=== PATIENT | female | born 1975 | race Caucasian/White ===

== ENCOUNTER 2016-12-07 13:53 | Emergency (ER) | payer BC ==
[2016-12-07] MEDS ORDERED: ONDANSETRON 4 MG VIAL ONE (18:11)
[2016-12-07] MEDS ORDERED: SODIUM CHLORIDE 0.9% 1,000 ML ONE (18:11)
[2016-12-07] MEDS ORDERED: DILAUDID 1 MG/ML AMP ONE ×2 (18:11→20:48)
[2016-12-07] MEDS ORDERED: DICYCLOMINE 10 MG CAP ONE (18:32)
[2016-12-07] MEDS ORDERED: ALU/MAG/SIM 30 ML UDC ONE (19:44)
[2016-12-07] MEDS ORDERED: LIDOCAINE 2% VISC 15 ML UDC ONE (19:45)
[2016-12-07] MEDS ORDERED: PROMETHAZINE 25 MG TAB ONE (21:10)
== END 2016-12-07 21:34 | disposition home or self-care (01) ==
LOC: ER 13:53
DX: R11.2 Nausea with vomiting, unspecified (principal); R19.7 Diarrhea, unspecified; R10.84 Generalized abdominal pain
CPT/HCPCS: 36415; 74020; 74176; 80053; 80307; 81003; 82009; 82803; 82947; 83605; 83690; 84703; 85025; 87040; 96361; 96374; 96375; 96376

== ENCOUNTER 2016-12-20 22:37 | Inpatient (IN) | payer BC ==
[~2016-12-20] VITALS: Ht 160 cm; Wt 110.6 kg
[2016-12-20] MEDS ORDERED: ASPIRIN 81 MG CHEW TAB ONE (23:04)
[2016-12-20] MEDS ORDERED: SODIUM CHLORIDE 0.9% 2,000 ML ONE (23:33)
[2016-12-20] MEDS ORDERED: ONDANSETRON 4 MG VIAL ONE (23:33)
[2016-12-20] MEDS ORDERED: DILAUDID 1 MG/ML AMP ONE (23:41)
[2016-12-21] MEDS ORDERED: ONDANSETRON 4 MG VIAL ONE (03:04)
[2016-12-21] MEDS ORDERED: MORPHINE 2 MG/ML SYR IV PRN (04:15)
[2016-12-21] MEDS ORDERED: GLUCAGON 1 MG VIAL IM PRN (04:15)
[2016-12-21] MEDS ORDERED: SALINE FLUSH 10 ML FLUSH PRN (04:15)
[2016-12-21] MEDS ORDERED: PHARMACY TO DOSE LEVAQUIN IV SCH (04:15)
[2016-12-21] MEDS ORDERED: DEXTROSE 50% SYRINGE 50 ML IV PRN (04:15)
[2016-12-21] MEDS ORDERED: DILAUDID 1 MG/ML AMP ONE (04:17)
[2016-12-21 05:19] VITALS: Ht 160 cm; Wt 110.6 kg
[2016-12-21] MEDS: SODIUM CHLORIDE 0.9% FLUSH BAG 500 ML IV SCH (06:00)
[2016-12-21] MEDS: LEVOFLOXACIN 750 MG/150 ML 150 ML IV SCH (06:08)
[2016-12-21 06:33] VITALS: BP_SYST 152; RESP 18; TEMP 97.6
[2016-12-21] MEDS ORDERED: DILAUDID 1 MG/ML AMP IV ONE (07:35)
[2016-12-21 07:52] VITALS: BP_SYST 148; RESP 16; TEMP 97.3
[2016-12-21] MEDS: SALINE FLUSH 10 ML FLUSH SCH ×2 (07:56→20:00)
[2016-12-21] MEDS: METRONIDAZOLE 500MG/100ML 100 ML IV SCH ×3 (08:00→18:52)
[2016-12-21] MEDS: PROMETHAZINE 25 MG/ML VIAL IV PRN ×2 (09:08→17:22)
[2016-12-21] MEDS: DILAUDID 1 MG/ML AMP IV PRN ×4 (09:35→18:58)
[2016-12-21] MEDS: FLUOXETINE 20 MG CAP PO SCH ×2 (10:38→20:25)
[2016-12-21] MEDS: clonazePAM 0.5 MG TAB PO SCH ×2 (10:38→20:25)
[2016-12-21] MEDS: ONDANSETRON 4 MG VIAL IV PRN ×3 (10:39→18:52)
[2016-12-21 11:40] VITALS: BP_SYST 112; RESP 18; TEMP 97.4
[2016-12-21 15:38] VITALS: BP_SYST 118; RESP 18; TEMP 97.2
[2016-12-21] MEDS: SODIUM CHLORIDE 0.9% 1,000 ML IV SCH (17:21)
[2016-12-21] MEDS ORDERED: MISSING DOSE XX ONE (18:10)
[2016-12-21] MEDS: CYCLOBENZAPRINE 10 MG TAB PO PRN (18:52)
[2016-12-21 19:25] VITALS: BP_SYST 124; RESP 20; TEMP 97.4
[2016-12-22] MEDS: DILAUDID 1 MG/ML AMP IV PRN ×6 (00:05→22:50)
[2016-12-22] MEDS: ONDANSETRON 4 MG VIAL IV PRN ×6 (00:05→22:51)
[2016-12-22] MEDS: METRONIDAZOLE 500MG/100ML 100 ML IV SCH ×5 (00:05→23:41)
[2016-12-22 01:19] VITALS: BP_SYST 128; RESP 20; TEMP 97.9
[2016-12-22] MEDS: PROMETHAZINE 25 MG/ML VIAL IV PRN ×3 (02:23→19:38)
[2016-12-22] MEDS: SODIUM CHLORIDE 0.9% 1,000 ML IV SCH ×2 (04:03→18:14)
[2016-12-22] MEDS: CYCLOBENZAPRINE 10 MG TAB PO PRN ×3 (04:03→18:06)
[2016-12-22] MEDS: SODIUM CHLORIDE 0.9% FLUSH BAG 500 ML IV SCH (06:00)
[2016-12-22 08:07] VITALS: BP_SYST 138; RESP 18; TEMP 96
[2016-12-22] MEDS: LEVOFLOXACIN 750 MG/150 ML 150 ML IV SCH (08:24)
[2016-12-22] MEDS: SALINE FLUSH 10 ML FLUSH SCH ×2 (08:24→19:38)
[2016-12-22] MEDS: clonazePAM 0.5 MG TAB PO SCH ×2 (08:27→22:49)
[2016-12-22] MEDS: FLUOXETINE 20 MG CAP PO SCH ×2 (08:27→22:49)
[2016-12-22 12:14] VITALS: BP_SYST 118; RESP 18; TEMP 97.2
[2016-12-22 16:35] VITALS: BP_SYST 149; RESP 18; TEMP 98.1
[2016-12-22 20:24] VITALS: BP_SYST 158; TEMP 98.1
[2016-12-22 22:49] VITALS: BP_SYST 147; RESP 16; TEMP 97.9
[2016-12-23] MEDS: CYCLOBENZAPRINE 10 MG TAB PO PRN ×3 (00:41→17:18)
[2016-12-23] MEDS: SODIUM CHLORIDE 0.9% 1,000 ML IV SCH ×2 (02:33→14:51)
[2016-12-23] MEDS: SODIUM CHLORIDE 0.9% FLUSH BAG 500 ML IV SCH (02:33)
[2016-12-23] MEDS: ONDANSETRON 4 MG VIAL IV PRN ×5 (03:19→20:18)
[2016-12-23] MEDS: DILAUDID 1 MG/ML AMP IV PRN ×5 (03:19→20:20)
[2016-12-23 03:27] VITALS: BP_SYST 123; RESP 18; TEMP 97.8
[2016-12-23] MEDS: METRONIDAZOLE 500MG/100ML 100 ML IV SCH ×4 (05:29→23:15)
[2016-12-23] MEDS: PROMETHAZINE 25 MG/ML VIAL IV PRN ×3 (05:30→23:16)
[2016-12-23] MEDS: SALINE FLUSH 10 ML FLUSH SCH ×2 (08:00→20:00)
[2016-12-23 08:16] VITALS: BP_SYST 131; RESP 18; TEMP 97.6
[2016-12-23] MEDS: FLUOXETINE 20 MG CAP PO SCH ×2 (09:10→20:18)
[2016-12-23] MEDS: clonazePAM 0.5 MG TAB PO SCH ×2 (09:11→20:18)
[2016-12-23] MEDS: LEVOFLOXACIN 750 MG/150 ML 150 ML IV SCH (09:12)
[2016-12-23 11:58] VITALS: BP_SYST 129; RESP 18; TEMP 98.1
[2016-12-23] MEDS: SUMATRIPTAN SUC 50 MG TAB PO PRN (14:06)
[2016-12-23 15:30] VITALS: BP_SYST 142; RESP 20; TEMP 97.7
[2016-12-23 19:22] VITALS: BP_SYST 145; RESP 18; TEMP 98.1
[2016-12-23 23:28] VITALS: BP_SYST 144; RESP 16; TEMP 98.8
[2016-12-24] MEDS: ONDANSETRON 4 MG VIAL IV PRN ×4 (01:28→22:58)
[2016-12-24] MEDS: DILAUDID 1 MG/ML AMP IV PRN ×4 (01:29→23:21)
[2016-12-24] MEDS: CYCLOBENZAPRINE 10 MG TAB PO PRN ×2 (02:00→12:20)
[2016-12-24] MEDS: SODIUM CHLORIDE 0.9% 1,000 ML IV SCH ×2 (02:01→12:59)
[2016-12-24 05:31] VITALS: BP_SYST 141; RESP 16; TEMP 97.8
[2016-12-24] MEDS: METRONIDAZOLE 500MG/100ML 100 ML IV SCH ×4 (05:46→23:25)
[2016-12-24] MEDS: SODIUM CHLORIDE 0.9% FLUSH BAG 500 ML IV SCH (06:00)
[2016-12-24 07:45] VITALS: BP_SYST 143; RESP 16; TEMP 97.9
[2016-12-24] MEDS: PROMETHAZINE 25 MG/ML VIAL IV PRN (07:53)
[2016-12-24] MEDS: SALINE FLUSH 10 ML FLUSH SCH ×2 (08:00→20:00)
[2016-12-24] MEDS ORDERED: KCL CR 20 MEQ TAB PO ONE (09:00)
[2016-12-24] MEDS: FLUOXETINE 20 MG CAP PO SCH ×2 (09:44→20:32)
[2016-12-24] MEDS: LEVOFLOXACIN 750 MG/150 ML 150 ML IV SCH (09:44)
[2016-12-24] MEDS: clonazePAM 0.5 MG TAB PO SCH ×2 (09:44→20:31)
[2016-12-24] MEDS ORDERED: MISSING DOSE XX ONE (09:45)
[2016-12-24] MEDS: SUMATRIPTAN SUC 50 MG TAB PO PRN (09:48)
[2016-12-24 11:52] VITALS: BP_SYST 162; RESP 16; TEMP 97.5
[2016-12-24] MEDS: METOCLOPRAMIDE 10 MG TAB PO SCH ×3 (12:23→20:32)
[2016-12-24 15:44] VITALS: BP_SYST 146; RESP 16; TEMP 97.8
[2016-12-24 19:13] VITALS: BP_SYST 123; RESP 18; TEMP 97.5
[2016-12-24 22:48] VITALS: BP_SYST 145; RESP 18; TEMP 98.4
[2016-12-25] MEDS: PROMETHAZINE 25 MG/ML VIAL IV PRN ×3 (00:35→21:23)
[2016-12-25] MEDS: SODIUM CHLORIDE 0.9% 1,000 ML IV SCH ×3 (00:44→23:16)
[2016-12-25] MEDS ORDERED: MISSING DOSE XX ONE ×3 (01:15→18:30)
[2016-12-25] MEDS: CYCLOBENZAPRINE 10 MG TAB PO PRN ×3 (01:35→18:36)
[2016-12-25 03:56] VITALS: BP_SYST 129; RESP 18; TEMP 97.7
[2016-12-25] MEDS: SODIUM CHLORIDE 0.9% FLUSH BAG 500 ML IV SCH (03:56)
[2016-12-25] MEDS: METRONIDAZOLE 500MG/100ML 100 ML IV SCH ×4 (06:02→23:48)
[2016-12-25] MEDS: DILAUDID 1 MG/ML AMP IV PRN (06:04)
[2016-12-25] MEDS: ONDANSETRON 4 MG VIAL IV PRN ×4 (06:09→20:00)
[2016-12-25] MEDS: METOCLOPRAMIDE 10 MG TAB PO SCH ×4 (06:14→20:00)
[2016-12-25 07:39] VITALS: BP_SYST 142; RESP 18; TEMP 98.3
[2016-12-25] MEDS: SALINE FLUSH 10 ML FLUSH SCH ×2 (08:39→19:58)
[2016-12-25] MEDS: LEVOFLOXACIN 750 MG/150 ML 150 ML IV SCH (08:40)
[2016-12-25] MEDS: clonazePAM 0.5 MG TAB PO SCH ×2 (08:41→21:23)
[2016-12-25] MEDS: FLUOXETINE 20 MG CAP PO SCH ×2 (08:42→20:00)
[2016-12-25] MEDS ORDERED: KCL CR 20 MEQ TAB PO ONE (08:55)
[2016-12-25 11:34] VITALS: BP_SYST 149; RESP 18; TEMP 98.1
[2016-12-25] MEDS: ENOXAPARIN 40 MG/0.4 ML SYR SUBQ SCH (11:40)
[2016-12-25 15:40] VITALS: BP_SYST 128; TEMP 97.6
[2016-12-25 19:18] VITALS: BP_SYST 149; RESP 16; TEMP 98.1
[2016-12-25 22:34] VITALS: BP_SYST 147; RESP 20; TEMP 98
[2016-12-26] MEDS: ONDANSETRON 4 MG VIAL IV PRN ×2 (00:37→05:23)
[2016-12-26] MEDS: CYCLOBENZAPRINE 10 MG TAB PO PRN (03:06)
[2016-12-26 03:18] VITALS: BP_SYST 147; RESP 18; TEMP 97.2
[2016-12-26] MEDS: METRONIDAZOLE 500MG/100ML 100 ML IV SCH ×2 (05:22→11:33)
[2016-12-26] MEDS: SODIUM CHLORIDE 0.9% FLUSH BAG 500 ML IV SCH (06:00)
[2016-12-26] MEDS: PROMETHAZINE 25 MG/ML VIAL IV PRN (06:40)
[2016-12-26] MEDS: METOCLOPRAMIDE 10 MG TAB PO SCH ×2 (06:40→11:33)
[2016-12-26 08:00] VITALS: BP_SYST 143; RESP 16; TEMP 98.2
[2016-12-26] MEDS: SALINE FLUSH 10 ML FLUSH SCH (08:00)
[2016-12-26] MEDS: LEVOFLOXACIN 750 MG/150 ML 150 ML IV SCH (09:07)
[2016-12-26] MEDS: clonazePAM 0.5 MG TAB PO SCH (09:07)
[2016-12-26] MEDS: FLUOXETINE 20 MG CAP PO SCH (09:07)
[2016-12-26] MEDS: SODIUM CHLORIDE 0.9% 1,000 ML IV SCH (09:08)
[2016-12-26] MEDS: ENOXAPARIN 40 MG/0.4 ML SYR SUBQ SCH (09:08)
[2016-12-26 11:47] VITALS: BP_SYST 143; RESP 16; TEMP 98.2
== END 2016-12-26 12:36 | disposition home or self-care (01) | DRG 74 ==
LOC: ENRESERVTM → ENRESERVDT → ER 22:37 → EMR 22:38 → 4NT 12-21 05:15 → OBSVTOIN 12-24 10:30 → ENPENDDIS 12-24 10:30
PROVIDERS: ADMIT Internal Medicine; ATTEND Internal Medicine
DX: E11.43 Type 2 diabetes mellitus with diabetic autonomic (poly)neuropathy (principal); K90.0 Celiac disease; K31.84 Gastroparesis; K52.9 Noninfective gastroenteritis and colitis, unspecified; F32.9 Major depressive disorder, single episode, unspecified; R07.89 Other chest pain; G43.909 Migraine, unspecified, not intractable, without status migrainosus; M54.5 Low back pain; Z79.84 Long term (current) use of oral hypoglycemic drugs; E86.1 Hypovolemia
CPT/HCPCS: 36415; 71010; 74000; 76705; 80048; 80053; 80061; 80307; 81003; 82550; 82553; 82947; 83690; 83735; 84484; 85025; 85379; 85610; 85730; 87493; 93005; 93306; 96361; 96372; 96374; 96375; 96376; 99219; 99232; 99233; 99239

== ENCOUNTER 2017-01-02 22:23 | Emergency (ER) | payer BC ==
[2017-01-03] MEDS ORDERED: ONDANSETRON 4 MG VIAL ONE (02:22)
[2017-01-03] MEDS ORDERED: SODIUM CHLORIDE 0.9% 1,000 ML ONE (02:22)
[2017-01-03] MEDS ORDERED: DIPHENHYDRAMINE 50 MG/ML VIAL ONE ×2 (04:56→05:06)
[2017-01-03] MEDS ORDERED: METOCLOPRAMIDE 10 MG/2 ML VIAL ONE ×2 (04:56→05:05)
== END 2017-01-03 06:00 | disposition home or self-care (01) ==
LOC: ER 22:23
DX: E11.65 Type 2 diabetes mellitus with hyperglycemia (principal); K31.84 Gastroparesis; R19.7 Diarrhea, unspecified; K90.0 Celiac disease; Z79.4 Long term (current) use of insulin; Z79.84 Long term (current) use of oral hypoglycemic drugs; Z79.899 Other long term (current) drug therapy
CPT/HCPCS: 36415; 80053; 82009; 82803; 82947; 83690; 85025; 96361; 96372; 96374